=== PATIENT | female | born 1990 | race American Indian/Alaskan Native ===

== ENCOUNTER 2018-04-29 09:19 | Emergency (ER) | payer SELFPAY ==
[2018-04-29] MEDS ORDERED: NACL 0.9% 1000 ML 1,000 ML IV ONE ×2 (10:16→13:43)
[2018-04-29] MEDS ORDERED: ZOFRAN IV ONE (10:17)
--- NOTE | 2018-04-29 10:20 | Emergency Department Report ---
HPI - General Chief Complaint: Abdominal Pain Time Seen by Provider: 04/29/18 10:12 - HPI HPI: 27-year-old female presents to the emergency department with complaint of abdominal pain, constipation and difficulty with urination after having a [place] butt lift a 6-7 days ago in [place]. She tried stool softeners, laxatives without any relief. She went to a hospital in [place] yesterday and says that she had an x-ray and was given some lactulose. She still has not had any satisfactory bowel movements and says that she had some vomiting yesterday that she says tasted/smelled like feces. She denies any other past medical history. ED Past Medical Hx - Past Medical History Previous Medical History?: No - Surgical History Past Surgical History?: No - Social History Smoking Status: Never Smoker Substance Use Type: None ED Review of Systems ROS: Stated complaint: CANT URINATE/6DAYS PAIN Other details as noted in HPI Comment: All other systems reviewed and negative Constitutional: denies: chills, fever Eyes: denies: eye pain, vision change ENT: denies: ear pain, throat pain Respiratory: denies: cough, shortness of breath Cardiovascular: denies: chest pain, palpitations Gastrointestinal: abdominal pain, vomiting Genitourinary: dysuria. denies: discharge Musculoskeletal: denies: back pain, arthralgia Skin: denies: rash, lesions Neurological: denies: headache, weakness Physical Exam - Physical Exam Vital Signs: Vital Signs 04/29/18 09:55 Temperature 98.2 F Pulse Rate 100 H Respiratory 16 Rate Blood Pressure 141/79 [Left] O2 Sat by Pulse 100 Oximetry Physical Exam: GENERAL: The patient is well-developed well-nourished. HEENT: Normocephalic. Atraumatic. Patient has moist mucous membranes. EYES: Extraocular motions are intact. NECK: Supple. Trachea is midline. CHEST/LUNGS: Clear to auscultation. There is no respiratory distress noted. HEART/CARDIOVASCULAR: Regular. There is no tachycardia. There is no obvious murmur. ABDOMEN: Abdomen is soft. Generalized tenderness to palpation, worse in the lower quadrants. No guarding. Patient has normal bowel sounds. There is no abdominal distention. SKIN: Skin is warm and dry. NEURO: The patient is awake, alert, and oriented. The patient is cooperative. The patient has no focal neurologic deficits. The patient has normal speech. MUSCULOSKELETAL: There is no tenderness or deformity. There is no evidence of acute injury. ED Course Vital Signs 04/29/18 09:55 Temperature 98.2 F Pulse Rate 100 H Respiratory 16 Rate Blood Pressure 141/79 [Left] O2 Sat by Pulse 100 Oximetry ED Medical Decision Making - Lab Data Result diagrams: 04/29/18 10:17 04/29/18 10:17 - Radiology Data Radiology results: report reviewed, image reviewed interpreted by me: Abdominal x-ray shows some nonspecific bowel gas and a moderate amount of stool PROCEDURE: CT ABDOMEN PELVIS W CON Computerized axial tomography of the abdomen and pelvis was performed after the IV injection of iodinated nonionic contrast. Coronal and sagittal reconstructed imaging provided. HISTORY: Abd pain, no BM for 1 week, S/P plastic surgery COMPARISONS: None currently available. FINDINGS: Abdomen: Lung bases and images of the heart are grossly unremarkable. Liver, gallbladder, stomach, spleen, pancreas, adrenals, and kidneys are unremarkable. No aneurysm. No dissection. No significant atherosclerotic disease. IVC is unremarkable. There is no periaortic or retroperitoneal adenopathy or mass. Moderate to marked stool in the sigmoid colon and rectum down. Moderately distended proximal bowel loops to the cecum with fluid stool and air-fluid levels. No wall thickening or stranding. Terminal ileum is unremarkable. The appendix is not identified. There are no pericecal inflammatory changes. Small bowel loops are unremarkable. No obstructive pattern. No air-fluid levels. No free air. No free fluid. Mesentery is unremarkable. Significant diffuse subcutaneous gas with stranding of the fat and swelling. Pelvis: Oval-shaped, low attenuation, rim-enhancing 1.9 cm lesion in the right adnexa may represent an ovary with ovarian cyst. Limited images of the uterus are unremarkable. Gas in the vagina. Bladder: Unremarkable. There is no pelvic mass or adenopathy. Inguinal regions are unremarkable. Bones: No suspicious osseous lesions on this limited examination of the skeleton. Metastatic disease better evaluated with bone scan. IMPRESSION: * Suspect constipation with fecal impaction at the distal sigmoid colon and rectum. Moderate distended proximal colon with fluid stool and air fluid levels suggests a diarrhea, mild colitis, or enterocolitis without wall thickening or stranding. No perforation. No abscess. * Subcutaneous gas with stranding and swelling may represent postsurgical liposuction. * Suspect right ovary with corpus luteal cyst. This document is electronically signed by Dedrick Shoemaker MD., April 29 2018 04:12:20 PM ET Transcribed By: TYM Dictated By: DEDRICK SHOEMAKER MD Electronically Authenticated By: DEDRICK SHOEMAKER MD Signed Date/Time: 04/29/18 8494 - Medical Decision Making This patient presents to the emergency department with abdominal pain and c onstipation. Labs were unremarkable. CT scan did not show any signs of any infection or any acute intra-abdominal or pelvic pathology. Patient was given a soapsuds enema and had a large and satisfactory bowel movement. Afterwards the patient says she is feeling much better and asking for discharge home. She will try to avoid any narcotic pain medication. She will increase her oral rehydration and continue taking stool softeners. She will follow up with primary care and return to the ER with any worsening of her symptoms or any acute distress. - Differential Diagnosis bowel obstruction, ileus, constipation, colitis Critical Care Time: No Critical care attestation.: If time is entered above; I have spent that time in minutes in the direct care of this critically ill patient, excluding procedure time. ED Disposition Clinical Impression: Abdominal pain Qualifiers: Abdominal location: generalized Qualified Code(s): R10.84 - Generalized abdominal pain Fecal retention Qualifiers: Constipation type: unspecified constipation type Qualified Code(s): K59.00 - Constipation, unspecified Disposition: DC-01 TO HOME OR SELFCARE Is pt being admited?: No Condition: Stable Instructions: Constipation (ED), Abdominal Pain (ED) Additional Instructions: Please follow-up with your primary care physician in the next 2 days. Return to the emergency Department with any worsening of your symptoms or any acute distress. Referrals: Primary Care Provider, Your [Other] - 3-5 Days Time of Disposition: 17:36
[2018-04-29 11:22] LABS: Alanine Aminotransferase 17 units/L (7-56); Albumin 3.5 g/dL (3.9-5); BUN/Creatinine Ratio 13; Bilirubin,Direct 0.3 mg/dL (0-0.2); Blood Urea Nitrogen 5 mg/dL (7-17); Calcium 8.6 mg/dL (8.4-10.2); Hemolysis Index 19
[2018-04-29 11:33] LABS: Basophils % (Auto) 0.1 % (0.0-1.8); Eosinophils % (Auto) 0.2 % (0.0-4.3); Hematocrit 30.5 % (30.3-42.9); Hemoglobin 10.1 gm/dl (10.1-14.3); Lymphocytes % (Auto) 9.1 % (13.4-35.0); Mean Corpuscular HGB Conc 33 % (30-34); Mean Corpuscular Volume 90 fl (79-97); Monocytes # (Auto) 0.9 K/mm3 (0.0-0.8); Monocytes % (Auto) 8.3 % (0.0-7.3); Platelet Count 371 K/mm3 (140-440); Red Blood Count 3.39 M/mm3 (3.65-5.03); Red Cell Distribution Width 14.5 % (13.2-15.2)
[2018-04-29 13:40] VITALS: BP 114/58
[2018-04-29] MEDS ORDERED: MORPHINE IV ONE (13:43)
--- NOTE | 2018-04-29 14:05 | XRay Report ---
ABDOMEN, 2 views: History: Abdominal pain. There appears to be diffuse subcutaneous gas throughout the abdominal wall. Please correlate for crepitus. There is moderate gas throughout the colon. No dilated small bowel loops or fluid levels are identified. No free air. No pathologic calcifications. IMPRESSION: Moderate gaseous distention of the colon but no obvious obstruction. There appears to be diffuse subcutaneous gas throughout the abdominal wall please correlate with the patient.
--- NOTE | 2018-04-29 16:14 | Cat Scan Report ---
PROCEDURE: CT ABDOMEN PELVIS W CON Computerized axial tomography of the abdomen and pelvis was performed after the IV injection of iodin ated nonionic contrast. Coronal and sagittal reconstructed imaging provided. HISTORY: Abd pain, no BM for 1 week, S/P plastic surgery COMPARISONS: None currently available. FINDINGS: Abdomen: Lung bases and images of the heart are grossly unremarkable. Liver, gallbladder, stomach, spleen, pancreas, adrenals, and kidneys are unremarkable. No aneurysm. No dissection. No significant atherosclerotic disease. IVC is unremarkable. There is no periaortic or retroperitoneal adenopathy or mass. Moderate to marked stool in the sigmoid colon and rectum down. Moderately distended proximal bowel lo ops to the cecum with fluid stool and air-fluid levels. No wall thickening or stranding. Terminal ileum is unremarkable. The appendix is not identified. There are no pericecal inflammatory changes. Small bowel loops are unremarkable. No obstructive pattern. No air-fluid levels. No free air. No free fluid. Mesentery is unremarkable. Significant diffuse subcutaneous gas with stranding of the fat and swelling. Pelvis: Oval-shaped, low attenuation, rim-enhancing 1.9 cm lesion in the right adnexa may represent an ovary with ovarian cyst. Limited images of the uterus are unremarkable. Gas in the vagina. Bladder: Unremarkable. There is no pelvic mass or adenopathy. Inguinal regions are unremarkable. Bones: No suspicious osseous lesions on this limited examination of the skeleton. Metastatic disease better evaluated with bone scan. IMPRESSION: * Suspect constipation with fecal impaction at the distal sigmoid colon and rectum. Moderate distend ed proximal colon with fluid stool and air fluid levels suggests a diarrhea, mild colitis, or enteroc olitis without wall thickening or stranding. No perforation. No abscess. * Subcutaneous gas with stranding and swelling may represent postsurgical liposuction. * Suspect right ovary with corpus luteal cyst. This document is electronically signed by Dedrick Alvarez MD., April 29 2018 04:12:20 PM ET
== END 2018-04-29 18:35 | disposition home or self-care (01) ==
LOC: ED 09:19
DX: K59.00 Constipation, unspecified (principal); R30.0 Dysuria; R11.10 Vomiting, unspecified
CPT/HCPCS: 36415; 74019; 74177; 80048; 80076; 84703; 85025; 96361; 96374; 96375; 99285; J2270; J2405; J7030; Q9967